=== PATIENT | female | born 1965 | race Caucasian/White ===

== ENCOUNTER 2025-03-21 18:47 | Emergency (ER) | payer MEDICAID ==
[~2025-03-21] VITALS: Ht 165.1 cm; Wt 104.3 kg
[2025-03-21 19:35] VITALS: BP 156/92; TEMP 98.4
[2025-03-21 19:54] VITALS: O2SAT 96
== END 2025-03-21 19:54 | disposition home or self-care (01) ==
LOC: ER 18:55
DX: H00.12 Chalazion right lower eyelid (principal); I10 Essential (primary) hypertension